=== PATIENT | male | born 1955 | race Caucasian/White ===

== ENCOUNTER 2022-11-14 07:56 | Emergency (ER) | payer MEDICARE, BC, SELFPAY ==
[2022-11-14 08:06] VITALS: BP 148/73; PULSE 59; RESP 18; TEMP 36.9; O2SAT 97; BMI 27.4
--- NOTE | 2022-11-14 11:39 | CRLHL7_ITS ---
For Patients: As a result of the Cures Act, medical imaging exams and procedure reports are released immediately into your electronic medical record. You may view this report before your referring provider. If you have questions, please contact your health care provider. Indication: Back pain Technique: Three views of the lumbosacral spine were acquired Comparison: None Findings: Alignment is normal. There is no visible acute fracture, dislocation or destructive process. Relatively mild degenerative changes diffusely. This most affects the facet joints of the mid and lower lumbar spine. Impression: Degenerative changes primarily of the mid and lower lumbar spine. No acute fracture, dislocation or destructive process. Dictated by Freddie Stern MD @ 11/14/2022 12:57:12 PM (Electronically Signed)
[2022-11-14 12:57] VITALS: BP 148/68; PULSE 68; RESP 18
--- NOTE | 2022-11-14 19:03 | ED_ITS ---
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 He describes pain in his low back with radiation to his left upper leg, but not below his knee, he localizes the pain starting in his back and then radiating around and down to the knee. He feels the knee is weak at times, but has not fallen, he finds much relief with laying on his stomach, or rolled up into a ball in the cow yoga get position. Denies fevers chills or sweats there is no bowel or bladder symptoms, no history of trauma but tells me that really the pain has been often on for the past 3-4 months. He did try chiropractic manipulation but this seemed to make it worse, he called a friend who is at physician and they gave him exercises to do. This seemingly made a lot worse, he did try to ibuprofen once, with 1 tablet, Tylenol with 1 tablet also. MD elicited complaint: back pain Related Data Previous Rx's Medication Instructions Recorded cyclobenzaprine 10 mg tablet 10 mg PO TID PRN muscle spasm #20 11/14/22 tabs prednisone 50 mg tablet 50 mg PO DAILY #7 tabs 11/14/22 Allergies Allergy/AdvReac Type Severity Reaction Status Date / Time No Known Drug Allergies Allergy Verified 11/14/22 08:09 Review of Systems Status of ROS: Reports: 10 or more systems reviewed and unremarkable except as noted in History and below PFSH PFS Social History Smoking Status: Never smoker How often do you have a drink containing alcohol: never AUDIT-C Alcohol total score: 0 Non-prescribed substance use: denies use Exam Narrative: Exam Narrative: Patient is seen in room 4, he is speaking to me normally was actually laying on his stomach for the majority of the time. He is able to get up for me stand normally there is some mild scoliosis of his back, he is able to forward flex to his hands to his almost mid thigh, with stopping because the pain, extensions full lateral flexion is decreased bilaterally as is thoracic rotation no palpable tenderness is noted on his lumbar thoracic spine on palpation pe rcussion, there is no masses noted. He has normal perianal sensation on a testing. SLR is are mildly positive with a left-sided approximately 60? [place], no right-sided is normal to 90?. He has normal EHLs great toe flexors ankle dorsiflexors and plantar flexors knee flexors extensors and hip flexors are graded 5/5 power bilaterally. He has sensation that is normal overall the signature dermatomal areas and over the normal pulses, and normal muscle bulk. Const: Vital Signs, click to edit/add: Vital Signs - 24 hr 11/14/22 08:06 11/14/22 12:57 Temperature 98.4 F Pulse Rate [Right Pulse Oximeter] 59 L 68 Respiratory Rate 18 18 Blood Pressure [Le ft Upper Arm] 148/73 H 148/68 H Pulse Oximetry 97 Oxygen Delivery Me thod Room Air Course Course Hospital Course: I discussed with the patient and the , we will give him a shot of Toradol, his x-ray of his back not show any acute findings, I would suggest that he follow-up with me in my spine clinic on Sunday, we will try some prednisone along with Flexeril, and he will use a better dose of ibuprofen. Increasing fevers chills sweats numbness tingling or weakness needs to come back to the ER and be seen, but he was very comfortable this plan Vital Signs Vital signs: Initial Vital Signs Temperature 98.4 F 11/14/22 08:06 Temperature Source Temporal Artery Scan 11/14/22 08:06 Pulse Rate 59 L 11/14/22 08:06 Respiratory Rate 18 11/14/22 08:06 Blood Pressure 148/73 H 11/14/22 08:06 Blood Pressure Mean 98 11/14/22 08:06 Blood Pressure Position Sitting 11/14/22 08:06 Pulse Oximetry 97 11/14/22 08:06 Oxygen Delivery Method 11/14/22 08:06 Vital Signs Temperature 98.4 F 11/14/22 08:06 Pulse Rate 59 L 11/14/22 08:06 Respiratory Rate 18 11/14/22 08:06 Blood Pressure 148/73 H 11/14/22 08:06 Pulse Oximetry 97 11/14/22 08:06 Oxygen Delivery Method 11/14/22 08:06 Temperature 98.4 F 11/14/22 08:06 Pulse Rate 68 11/14/22 12:57 Respiratory Rate 18 11/14/22 12:57 Blood Pressure 148/68 H 11/14/22 12:57 Pulse Oximetry 97 11/14/22 08:06 Oxygen Delivery Method 11/14/22 08:06 MDM - Back Pain/Injury Differential Diagnosis Differential diagnosis: Likely lumbar radiculopathy, sciatica, strain of lumbar region, renal colic, pyelonephritis, thoracic back pain, AAA and discitis Medical Records Attestation: I reviewed the patient's medical records. Imaging Data lumbar x-ray: Attestation: I have reviewed the pertinent imaging results. My impression: no acute findings per my review Radiologist's impression: Patient: CLIFFORD IRIZARRY Facility:?[facility] Patient ID:?[id number] Site Patient ID:?[id number]. Site :?[id number] Study:?XRay Spine Lumbar 3 VIEW-11/14/2022 12:06:37 PM Ordering Physician:Mark Rushing Final Report: Indication: Back pain Technique: Three views of the lumbosacral spine were acquired Comparison: None Findings: Alignment is normal. There is no visible acute fracture, dislocation or destructive process. Relatively mild degenerative changes diffusely. This most affects the facet joints of the mid and lower lumbar spine. Impression: Degenerative changes primarily of the mid and lower lumbar spine. No acute fracture, dislocation or destructive process. Dictated by Freddie Stern MD @ 11/14/2022 12:57:12 PM (Electronic Signature) Discharge Plan Discharge Clinical Impression: Lumbar radiculopathy Patient Disposition: Home w/ Parent or Adult Condition: Stable Instructions: Back Pain (ED) Additional Instructions: Follow up scheduled at [facility] on 11/20 with 2:40 arrival time. Ortho Clinic: [address] [place] [address] home rest use of ibuprofen 800 mg p.o. t.i.d., ice is also suggested, follow- up with me on Sunday at the [facility], return if worsening signs and symptoms of numbness tingling weakness in the spine, do not take ibuprofen till this evening. You may take Tylenol, and a prescription given for prednisone along with Flexeril. Prescriptions: New prednisone 50 mg tablet 50 mg PO DAILY Qty: 7 0RF cyclobenzaprine 10 mg tablet 10 mg PO TID PRN (Reason: muscle spasm) Qty: 20 0RF Follow Up/Referrals: Jaylen Turner MD [Primary Care Provider] - Stand Alone Forms: M_SOLUTION Info Instructions
== END 2022-11-14 12:58 | disposition home or self-care (01) ==
PROVIDERS: Emergency Provider Family Medicine; PCP Family Medicine
DX: M54.16 Radiculopathy, lumbar region (principal)
CPT/HCPCS: 72100; 99283; 99284